=== PATIENT | male | born 1950 | race Caucasian/White ===

== ENCOUNTER 2017-01-02 17:15 | Emergency (ER) | payer OTHER ==
[~2017-01-02] VITALS: Ht 170.2 cm; Wt 72.6 kg
[~2017-01-02 17:15] MED LIST: ASPI81CH43; FLUT250M9; HUMOLOG; HYDR12.56; LANTUS; LISI-711; METF-314; METO25TA3; SIMV40TA96; TYLENOL
[2017-01-02 19:18] VITALS: BP 160/73
== END 2017-01-02 21:29 | disposition home or self-care (01) ==
LOC: ER 17:29
DX: T16.1XXA Foreign body in right ear, initial encounter (principal); H60.91 Unspecified otitis externa, right ear; Z79.4 Long term (current) use of insulin; J45.909 Unspecified asthma, uncomplicated; J44.9 Chronic obstructive pulmonary disease, unspecified; E11.9 Type 2 diabetes mellitus without complications; E78.5 Hyperlipidemia, unspecified; I10 Essential (primary) hypertension; F17.210 Nicotine dependence, cigarettes, uncomplicated; X58.XXXA Exposure to other specified factors, initial encounter; Y93.89 Activity, other specified; Y99.8 Other external cause status; Y92.89 Other specified places as the place of occurrence of the external cause